=== PATIENT | female | born 1950 | race Caucasian/White ===

== ENCOUNTER 2021-05-13 17:02 | Outpatient (REF) | payer MEDICARE, BC, SELFPAY ==
[2021-05-15 13:22] LABS: COVID-19 RT-PCR UVMMC Result Negative (Negative)
== END 2021-05-13 17:03 | disposition home or self-care (01) ==
LOC: NCHCN 17:02
PROVIDERS: Visit Provider Nurse Practitioner Family
DX: Z20.822 Contact with and (suspected) exposure to COVID-19 (principal); J06.9 Acute upper respiratory infection, unspecified
CPT/HCPCS: U0003; U0005